=== PATIENT | male | born 1945 | race Native Hawaiian/Other Pacific Islander ===

== ENCOUNTER 2023-02-04 18:14 | Emergency (ER) | payer BC, OTHER ==
[~2023-02-04] VITALS: Ht 177.8 cm; Wt 88.5 kg
[2023-02-04 18:23] VITALS: BP 139/65; TEMP 98.1
== END 2023-02-04 19:07 | disposition left against medical advice (07) ==
LOC: ED 18:14
DX: R33.8 Other retention of urine (principal); Z53.29 Procedure and treatment not carried out because of patient's decision for other reasons
CPT/HCPCS: 99283

== ENCOUNTER 2023-04-23 08:29 | Outpatient (CLI) | payer BC, OTHER | END 2023-04-23 18:57 | disposition home or self-care (01) | LOC: MRI 08:29 | PROVIDERS: ATTEND Nurse Practitioner Gerontology | DX: M31.6 Other giant cell arteritis (principal); R25.1 Tremor, unspecified; R27.0 Ataxia, unspecified ==